=== PATIENT | female | born 1970 | race Two or more races ===

== ENCOUNTER 2017-06-24 07:14 | Emergency (ER) | payer OTHER ==
[~2017-06-24] VITALS: Ht 157.5 cm; Wt 67.1 kg
[2017-06-24] MEDS ORDERED: NOLVADEX10 MG (07:57)
== END 2017-06-24 14:14 | disposition home or self-care (01) ==
LOC: ER 07:14
DX: N20.1 Calculus of ureter (principal)

== ENCOUNTER 2017-06-26 12:51 | Outpatient (CLI) | payer OTHER ==
[~2017-06-26 12:51] MED LIST: NOLVADEX10 MG
== END 2017-06-26 12:59 | disposition home or self-care (01) ==
LOC: RAD 12:51
DX: N20.0 Calculus of kidney (principal)

== ENCOUNTER 2017-07-09 05:50 | Day surgery (SDC) | payer OTHER ==
[~2017-07-09 05:50] MED LIST changes: -NOLVADEX10 MG; +NOLVADEX10 MG PO; +TRAMADOL HCL50 MG PO; +VYVANSE30 MG PO
[2017-07-09] MEDS ORDERED: TAMS0.4C PO (09:11)
[2017-07-09] MEDS ORDERED: ULTRACET PO (09:11)
[2017-07-09] MEDS ORDERED: KEFLEX500 MG PO (09:11)
== END 2017-07-09 15:30 | disposition home or self-care (01) ==
LOC: CIR LITO 05:50 → CIR.AMB 07:00 → LAB 11:17 → CIR.AMB 12:21 → CIR LITO 15:30
DX: N20.0 Calculus of kidney (principal)

== ENCOUNTER 2017-07-22 11:48 | Outpatient (CLI) | payer OTHER ==
[~2017-07-22 11:48] MED LIST changes: +KEFLEX500 MG PO; +TAMS0.4C PO; +ULTRACET PO
== END 2017-07-22 15:27 | disposition home or self-care (01) ==
LOC: RAD 11:48
DX: N20.0 Calculus of kidney (principal)

== ENCOUNTER 2021-06-20 10:52 | Emergency (ER) | payer OTHER ==
[~2021-06-20] VITALS: Ht 157.5 cm; Wt 72.6 kg
[2021-06-20] MEDS ORDERED: DICLOFENAC POTA50 MG PO (12:15)
[2021-06-20] MEDS ORDERED: ORPHENADRINE C100 MG PO (12:15)
== END 2021-06-20 12:21 ==
LOC: ER 10:52
DX: M62.838 Other muscle spasm (principal)